=== PATIENT | male | born 1990 | race Caucasian/White ===

== ENCOUNTER 2020-12-13 08:41 | Emergency (ER) | payer OTHER ==
[2020-12-13] MEDS ORDERED: HYDROCODON-ACE1 EAC4 PO (09:53)
[2020-12-13] MEDS ORDERED: IBUPROFEN600 MG PO (10:01)
== END 2020-12-13 10:12 | disposition home or self-care (01) ==
LOC: ER1 08:41
DX: S43.402A Unspecified sprain of left shoulder joint, initial encounter (principal); F17.200 Nicotine dependence, unspecified, uncomplicated; X58.XXXA Exposure to other specified factors, initial encounter
CPT/HCPCS: 73030; 99283